=== PATIENT | male | born 1970 | race Caucasian/White ===

== ENCOUNTER → 2018-06-16 | Outpatient (CLI) | payer OTHER | END | disposition home or self-care (01) | LOC: RAD 13:04 | DX: M41.86 Other forms of scoliosis, lumbar region (principal); M19.072 Primary osteoarthritis, left ankle and foot; M19.071 Primary osteoarthritis, right ankle and foot; M17.0 Bilateral primary osteoarthritis of knee; M25.461 Effusion, right knee; M47.892 Other spondylosis, cervical region; M41.84 Other forms of scoliosis, thoracic region; S63.075A Dislocation of distal end of left ulna, initial encounter; M18.9 Osteoarthritis of first carpometacarpal joint, unspecified; M19.011 Primary osteoarthritis, right shoulder; M25.512 Pain in left shoulder; R61 Generalized hyperhidrosis; M43.6 Torticollis; X58.XXXA Exposure to other specified factors, initial encounter; Y93.89 Activity, other specified; Y92.89 Other specified places as the place of occurrence of the external cause; Y99.8 Other external cause status ==

== ENCOUNTER → 2021-01-07 | Outpatient (CLI) | payer OTHER | END | disposition home or self-care (01) | LOC: RAD 11:03 | PROVIDERS: ATTEND Chiropractor | DX: M51.36 Other intervertebral disc degeneration, lumbar region (principal); M47.816 Spondylosis without myelopathy or radiculopathy, lumbar region; M41.86 Other forms of scoliosis, lumbar region ==